=== PATIENT | female | born 1990 | race Caucasian/White ===

== ENCOUNTER 2016-12-13 08:04 | Emergency (ER) | payer BC, OTHER ==
[2016-12-13 08:11] VITALS: RESP 18
--- NOTE | 2016-12-13 09:21 | ED ---
Abdominal Pain HPI - General Chief Complaint: Abdominal Pain Stated Complaint: Abd.pain Time Seen by Provider: 12/13/16 08:35 Source: patient, RN notes reviewed Mode of arrival: ambulatory Limitations: no limitations - History of Present Illness Initial Comments: Patient is 26-year-old female presents to the emergency room for evaluation of lower abdominal pain. Patient states the pain began about 3 days ago. Patient states she is on control and has the Implanon implant. Patient states that her last menstrual period was about 4 months ago. Patient states about 3 days ago she began vaginal bleeding and clotting. Patient states she's having severe pain and bilateral ovaries. Patient denies back pain. Patient denies nausea or vomiting. Patient denies diarrhea or constipation. Patient states having 5 out of 10 constant pain. Patient states she has intermittent 8 out of 10 sharp pain. Patient denies any fevers or chills. Patient does state she has a history of ovarian cysts. Patient denies any history of STDs. Patient denies pain or burning during urination, trouble urinating or blood in urine. Patient denies any history of kidney stones. Patient denies headache, dizziness , chest pain, shortness of breath. - Related Data Home Medications Medication Instructions Recorded Confirmed Etonogestrel [Nexplanon ( 68 mg SUBDERMAL [id number] 05/30/16 12/13/16 control implant)] Ibuprofen [Motrin] 800 mg PO TID PRN 12/13/16 12/13/16 Allergies Allergy/AdvReac Type Severity Reaction Status Date / Time Influenza Virus Vaccines Allergy Unknown Verified 12/13/16 08:11 Review of Systems ROS Statement: Those systems with pertinent positive or pertinent negative responses have been documented in the HPI. ROS Other: All systems not noted in ROS Statement are negative. Past Medical History Past Medical History: Asthma, GERD/Reflux Additional Past Medical History / Comment(s): Migraines, See Dr Mark Puga&Analy, has nexplanol implant in arm History of Any Multi-Drug Resistant Organisms: None Reported Additional Past Surgical History / Comment(s): Pilonidal cyst removal. LOOP RECORDER Past Anesthesia/Blood Transfusion Reactions: No Reported Reaction Past Psychological History: Anxiety, Depression Smoking Status: Never smoker Past Alcohol Use History: Occasional Past Drug Use History: None Reported - Past Family History Mother Family Medical History: No Reported History General Exam - General Exam Comments Initial Comments: Sitting in exam room in no acute distress. Limitations: no limitations General appearance: alert, in no apparent distress Head exam: Present: atraumatic, normocephalic, normal inspection Eye exam: Present: normal appearance ENT exam: Present: normal exam Neck exam: Present: normal inspection Respiratory exam: Present: normal lung sounds bilaterally. Absent: respiratory distress Cardiovascular Exam: Present: regular rate, normal rhythm, normal heart sounds GI/Abdominal exam: Present: soft, tenderness (Right lower quadrant, left lower quadrant), normal bowel sounds. Absent: distended, guarding, rebound, rigid External exam: Present: normal external exam Speculum exam: Present: vaginal bleeding (It appears patient is currently menstruating) By manual exam: Present: normal by manual exam. Absent: cervical motion tenderness, adnexal tenderness Extremities exam: Present: normal inspection Back exam: Present: normal inspection Neurological exam: Present: alert, oriented X3, CN II-XII intact, normal gait Psychiatric exam: Present: normal affect, normal mood Skin exam: Present: warm, dry, intact, normal color. Absent: rash Course Vital Signs 12/13/16 12/13/16 08:09 10:58 Temperature 97.7 F 98.5 F Pulse Rate 81 74 Respiratory 18 18 Rate Blood Pressure 135/85 125/71 O2 Sat by Pulse 100 100 Oximetry Medical Decision Making - Medical Decision Making Patient is a 26-year-old female presents to the emergency room for evaluation of vaginal bleeding and abdominal pain. Urine beta hCG negative. It appears the patient is currently menstruating. Pelvic exam significant for vaginal bleeding but no severe tenderness. Advised patient take Tylenol or Motrin for pain and to follow-up with her GLACIOLOGIST. Advised patient to return for worsening symptoms. Patient states she understands everything that was discussed with her. Case discussed with Dr. Cruz. - Lab Data Lab Results 12/13/16 12/13/16 Range/Units 09:28 09:28 Urine Color Light Yellow Urine Appearance Clear (Clear) Urine pH 6.0 (5.0-8.0) Ur Specific [place] 1.014 (1.001-1.035) Urine Protein Negative (Negative) Urine Glucose (UA) Negative (Negative) Urine Ketones Negative (Negative) Urine Blood Small H (Negative) Urine Nitrate Negative (Negative) Urine Bilirubin Negative (Negative) Urine Urobilinogen <2.0 (<2.0) mg/dL Ur Leukocyte Esterase Negative (Negative) Urine RBC 1 (0-5) /hpf Urine WBC <1 (0-5) /hpf Ur Squamous Epith Cells <1 (0-4) /hpf Urine Mucus Rare H (None) /hpf Urine HCG, Qual Not Detected (Not Detectd) Disposition Clinical Impression: Menorrhagia Disposition: HOME SELF-CARE Condition: Good Instructions: Menorrhagia (ED), Dysmenorrhea (ED) Additional Instructions: Take Tylenol or Motrin for pain. Please follow-up with GLACIOLOGIST in 24-48 hours. If any new symptom arises, symptoms worsen or fever develops, return to ER as soon as possible. Referrals: Marguerite Francois III, MD [Primary Care Provider] - 1-2 days Time of Disposition: 10:45
[2016-12-13 10:08] LABS: Appearance,Urine Clear (Clear); Bilirubin,Urine Negative (Negative); Glucose,Urine (UA) Negative (Negative); Ketones,Urine Negative (Negative); Leukocyte Esterase,Urine Negative (Negative); Mucus,Urine Rare /hpf; Nitrite,Urine Negative (Negative); Particle Count 2154; Protein,Urine Negative (Negative); RBC,Urine 1 /hpf (0-5); Specific Gravity,Urine 1.014 (1.001-1.035); Squamous Epithelial Cell,Urine <1 /hpf (0-4); UA Billing (MACRO vs. MICRO) MICRO; Urobilinogen,Urine <2.0 mg/dL (<2.0); WBC,Urine <1 /hpf (0-5)
[2016-12-13 10:58] VITALS: BP 125/71; PULSE 74; TEMP 98.5
== END 2016-12-13 10:58 | disposition home or self-care (01) ==
LOC: EC 08:04
DX: N92.0 Excessive and frequent menstruation with regular cycle (principal); Z88.7 Allergy status to serum and vaccine
CPT/HCPCS: 81001; 81025; 99284

== ENCOUNTER → 2016-12-22 | Outpatient (CLI) | payer BC, OTHER ==
--- NOTE | 2016-12-22 13:06 | US ---
EXAMINATION TYPE: US transvaginal DATE OF EXAM: 12/22/2016 10:42 AM COMPARISON: 12/22/2015 CLINICAL HISTORY: 26-year-old female R10.9 ABD Pain. Intermittent pelvic pain x 1 year, 2, pa ra 1, miscarriage 1 Date of LMP: 2 weeks ago TECHNIQUE: Multiple transvaginal sonographic images of the pelvis were obtained. FINDINGS: Uterus: Retroverted measuring 8.4 x 6.7 x 5.9 cm. There is a heterogeneous hypoechoic 3.9 cm round l esion in the fundal myometrium. A couple small cervical nabothian cysts are present. Endometrial Stripe: 0.4 cm Right Ovary: 2.4 x 2.7 x 2.2 cm for a volume of 7.3 mL. There is follicular change with multiple fol licles measuring up to 1 m. Left Ovary: 3.6 x 1.9 x 2.5 cm for a volume of 9.0 mL. There is follicular change with multiple foll icles, largest measuring 2.2 cm with some internal echoes and thickening. No evident adnexal abnormality or cul-de-sac free fluid. IMPRESSION: 1. Retroverted uterus with a 3.9 cm round lesion along the fundal myometrium suggestive of a prominen t focal fibroid. 2. Follicular change in both ovaries. 3. A 2.2 cm cystic lesion in the left ovary has internal echoes and may represent a hemorrhagic cyst. Recommend 6-8 week follow-up to reassess.
== END | disposition home or self-care (01) ==
LOC: RADUSWWP 10:06
PROVIDERS: ATTEND Family Medicine
DX: N83.202 Unspecified ovarian cyst, left side (principal); N85.4 Malposition of uterus
CPT/HCPCS: 76830

== ENCOUNTER → 2017-07-28 | Outpatient (CLI) | payer OTHER ==
[2017-07-28 10:21] LABS: Basophils % (A) 0 %; CH 27.4; CHCM 31.6; Eosinophils # (A) 0.1 k/uL (0-0.7); Eosinophils % (A) 1 %; HCT 40.8 % (34.0-46.0); HDW 2.53; Hypochromasia Slight; Luc # (Auto) 0.14; Luc % (Auto) 2; Lymphocytes # (A) 1.7 k/uL (1.0-4.8); Lymphocytes % (A) 23 %; MCH 27.8 pg (25.0-35.0); Mean Platelet Volume 7.1; Monocytes # (A) 0.4 k/uL (0-1.0); Monocytes % (A) 6 %; Neutrophils # (A) 5.1 k/uL (1.3-7.7); Neutrophils % (A) 68 %; RBC 4.69 m/uL (3.80-5.40); RDW 14.9 % (11.5-15.5); WBC 7.5 k/uL (3.8-10.6); WBC (Perox) 7.87
[2017-07-28 10:56] LABS: ALT 36 U/L (9-52); AST 22 U/L (14-36); Alkaline Phosphatase 88 U/L (38-126); Anion Gap 10 mmol/L; Blood Urea Nitrogen 15 mg/dL (7-17); Calcium 9.5 mg/dL (8.4-10.2); Carbon Dioxide 27 mmol/L (22-30); Chloride 104 mmol/L (98-107); Cholesterol 171 mg/dL (<200); Glucose 86 mg/dL (74-99); HDL Cholesterol 71 mg/dL (40-60); Non-African American GFR(MDRD) >60 (>60 ml/min/1.73 sqM); Sodium 141 mmol/L (137-145); Total Bilirubin 0.6 mg/dL (0.2-1.3); Total Protein 7.7 g/dL (6.3-8.2)
== END | disposition home or self-care (01) ==
LOC: LABWHC1 09:28
PROVIDERS: ATTEND Nurse Practitioner Family
DX: Z13.220 Encounter for screening for lipoid disorders (principal); Z13.29 Encounter for screening for other suspected endocrine disorder; Z13.228 Encounter for screening for other metabolic disorders; Z13.21 Encounter for screening for nutritional disorder; Z13.0 Encounter for screening for diseases of the blood and blood-forming organs and certain disorders involving the immune mechanism
CPT/HCPCS: 36415; 80053; 80061; 82306; 84443; 85025; 86376; 86800

== ENCOUNTER → 2017-08-03 | Outpatient (CLI) | payer OTHER ==
--- NOTE | 2017-08-03 15:03 | US ---
EXAMINATION TYPE: US thyroid st tissue head/neck DATE OF EXAM: 08/03/2017 COMPARISON: NONE CLINICAL HISTORY: E04.9 Goiter,R63.5 Abn wt gain. GLAND SIZE: Right Lobe: 4.9 x 1.6 x 1.6 cm Overall Parenchyma: homogenous Left Lobe: 4.5 x 1.5 x 1.5 cm Overall Parenchyma: homogeneous Isthmus Thickness: 0.4 cm NODULES RIGHT: # of nodules measured on right: 0 LEFT: # of nodules measured on left: 0 ISTHMUS: # of nodules measured in the isthmus: 0 Bilateral neck scanned, no evidence of lymphadenopathy. Thyroid gland is normal in size and homogeneous echotexture without evidence of suspicious solid or c ystic nodules bilaterally. IMPRESSION: Unremarkable study.
--- NOTE | 2017-08-03 15:06 | US ---
EXAMINATION TYPE: US transvaginal DATE OF EXAM: 08/03/2017 COMPARISON: US December 22, 2016 CLINICAL HISTORY: R10.2 Pel/Eusebia Pain. Left pelvic pain > right and pain x 2 years; MP end of June ; uterine fibroid TECHNIQUE: Transvaginal (TV) Date of LMP: approximately 2 weeks ago EXAM MEASUREMENTS: Uterus: 9.8 x 7.5 x 6.9 cm Endometrial Stripe: 0.7 cm, but limitedly seen Right Ovary: 3.4 x 2.3 x 2.2 cm Left Ovary: 3.1 x 1.9 x 1.9 cm 1. Uterus: Retroverted; heterogeneous oval fibroid in mid upper uterus = 4.7 x 5.2 x 4.3cm; couple o f Nabothian cysts in CX with larger = 0.7 x 0.7 x 0.7cm; small amount of fluid in cervical canal 2. Endometrium: minimally seen in REGINA due to location of uterine fibroid obscuring endometrium 3. Right Ovary: multiple follicles with largest = 1.4 x 1.3 x 0.9cm 4. Left Ovary: multiple follicles with largest = 2.2 x 1.7 x 1.3cm Spectral, color and waveform Doppler imaging shows good arterial and venous flow within the ovaries ; . 5. Bilateral Adnexa: wnl 6. Posterior cul-de-sac: wnl Some fluid in the endometrial cervical canal is noted on images 11 and 12. Nabothian cysts and cervix are redemonstrated. There is hypervascular 5.2 cm isoechoic oval-shaped central fibroid redemonstrat ed distorting the endometrium which is suboptimally evaluated. No free fluid is seen in pelvis. Both ovaries are redemonstrated. Multiple peripheral follicles scattered throughout both ovaries are identified. IMPRESSION: There is persistent intramural fibroid with mass effect, and measures up to 5.2 cm in siz e on current study suggesting it has enlarged in the interval since prior ultrasound.
== END ==
LOC: RADUSWWP 13:34
PROVIDERS: ATTEND Family Medicine
DX: E04.9 Nontoxic goiter, unspecified (principal); D25.1 Intramural leiomyoma of uterus
CPT/HCPCS: 76536; 76830

== ENCOUNTER 2017-08-16 17:52 | Emergency (ER) | payer OTHER ==
[2017-08-16] MEDS ORDERED: ACETAMINOPHEN TAB 500 MG TAB PO STA (19:32)
--- NOTE | 2017-08-16 19:32 | ED ---
General Adult HPI - General Chief complaint: Urogenital Stated complaint: pelvic pain Time Seen by Provider: 08/16/17 18:48 Source: patient Mode of arrival: ambulatory Limitations: no limitations - History of Present Illness Initial comments: This is a 27-year-old female who presents to the emergency department with complaint of pelvic pain. She has a history of ovarian cysts and uterine fibroids and sees Dr. Francois. Last ultrasound was performed on 08/03/2017 which demonstrated bilateral ovarian follicles and enlarging intramural uterine fibroid. Patient states yesterday morning she began having constant bilateral lower pelvic pain described as cramping which radiates up her abdomen and to her back. She does not take control. Patient states she was supposed to start her period 2 days ago but has not yet started. She states there is a possibility she could be . She has had the same sexual partner for the past 7 years. She denies vaginal bleeding or discharge. She denies any urinary symptoms including dysuria, frequency, or urgency. - Related Data Home Medications Medication Instructions Recorded Confirmed No Known Home Medications [No 08/16/17 08/16/17 Known Home Medications] Allergies Allergy/AdvReac Type Severity Reaction Status Date / Time Influenza Virus Vaccines Allergy Unknown Verified 08/16/17 19:13 Review of Systems ROS Statement: Those systems with pertinent positive or pertinent negative responses have been documented in the HPI. ROS Other: All systems not noted in ROS Statement are negative. Past Medical History Past Medical History: Asthma, GERD/Reflux Additional Past Medical History / Comment(s): Migraines, See Dr Flores H&P, has nexplanol implant in arm, ovarian cyst History of Any Multi-Drug Resistant Organisms: None Reported Additional Past Surgical History / Comment(s): Pilonidal cyst removal. LOOP RECORDER Past Anesthesia/Blood Transfusion Reactions: No Reported Reaction Past Psychological History: Anxiety, Depression Smoking Status: Never smoker Past Alcohol Use History: Occasional Past Drug Use History: None Reported - Past Family History Mother Family Medical History: No Reported History General Exam - General Exam Comments Initial Comments: General: Awake and alert, well-developed; appears to be in mild pain as she lies on her back with her legs pulled up to her abdomen. HEENT: Head atraumatic, normocephalic. Pupils are equal, round and reactive to light. Extraocular movements intact. Oropharynx moist without erythema or exudate. Neck: Supple. Normal ROM. No JVD. Trachea midline. No adenopathy. Cardiovascular: Regular rate and rhythm. No murmurs, rubs or gallops. Chest symmetrical. Respiratory: Lungs clear to auscultation bilaterally. No wheezes, rales or rhonchi. Normal respiratory efffort with no use of accessory muscles. Abdomen: Soft, non-distended. Moderate bilateral lower abdominal pain. No rigidity, rebound, guarding. Normal bowel sounds in all 4 quadrants. Skin: [place], warm and dry. Neurological: Alert and oriented x3. CN II-XII grossly intact. Speech is fluent and answers are appropriate. No focal neuro deficits. Psychiatric: Normal mood and affect. No overt signs of depression or anxiety noted. Limitations: no limitations Course Vital Signs 08/16/17 18:40 Temperature 100.8 F H Pulse Rate 122 H Respiratory 18 Rate Blood Pressure 163/95 O2 Sat by Pulse 99 Oximetry - Reevaluation(s) Reevaluation #1: Patient continues to appear in moderate pain. She is curled into the position upon re-exam. She states that she lives with chronic lower abdominal pain that she attributes to ovarian cysts. This is the same pain she normally experiences however it is worsened. Patient continues to be tachycardic with a mild fever. Will give a liter bolus of normal saline at this time as well as a dose of Dilaudid and Zofran. 08/16/17 19:55 Medical Decision Making - Medical Decision Making Patient has a history of ovarian cysts and uterine fibroids with her last appointment on 08/03/2017. Abdominal pain is likely due to ovarian causes. Urinalysis was negative. test was negative. Mildly elevated white blood cell 11.9. Likely reactive. The case was discussed in detail with Dr. Betancourt. Patient advised to follow up with PCP as soon as possible. She admits to having an appointment scheduled for next Monday but was advised to call tomorrow morning. Disposition Clinical Impression: Pelvic pain, Polycystic ovaries Disposition: HOME SELF-CARE Condition: Good Instructions: Ovarian Cyst (ED) Additional Instructions: Please follow up with PCP as soon as possiible. Return to ED if symptoms should worsen. Referrals: Marguerite Francois III, MD [Primary Care Provider] - 1-2 days Time of Disposition: 21:59
[2017-08-16 19:34] LABS: Appearance,Urine Cloudy (Clear); Bacteria,Urine Rare /hpf; Bilirubin,Urine Negative (Negative); Glucose,Urine (UA) Negative (Negative); Ketones,Urine 1+ (Negative); Leukocyte Esterase,Urine Negative (Negative); Mucus,Urine Few /hpf; Nitrite,Urine Negative (Negative); PH, Urine 5.5 (5.0-8.0); Particle Count 7481; Protein,Urine Negative (Negative); RBC,Urine 2 /hpf (0-5); Specific Gravity,Urine 1.021 (1.001-1.035); Squamous Epithelial Cell,Urine 9 /hpf (0-4); UA Billing (MACRO vs. MICRO) MICRO; Urobilinogen,Urine <2.0 mg/dL (<2.0); WBC,Urine 4 /hpf (0-5)
[2017-08-16] MEDS ORDERED: HYDROmorphone 1 MG/ML 1 ML SYRINGE IVP STA ×2 (19:53→21:37)
[2017-08-16] MEDS ORDERED: ONDANSETRON 4 MG/2 ML VIAL IVP STA (19:54)
[2017-08-16] MEDS ORDERED: SODIUM CHLORIDE 0.9% 1,000 ML IV STA (19:54)
[2017-08-16 20:17] LABS: Basophils % (A) 0 %; CH 27.8; CHCM 31.6; Eosinophils # (A) 0.1 k/uL (0-0.7); Eosinophils % (A) 1 %; HCT 40.3 % (34.0-46.0); HDW 2.37; HGB 13.1 gm/dL (11.4-16.0); Luc # (Auto) 0.16; Luc % (Auto) 1; Lymphocytes # (A) 1.6 k/uL (1.0-4.8); Lymphocytes % (A) 13 %; MCH 28.6 pg (25.0-35.0); MCHC 32.4 g/dL (31.0-37.0); MCV 88.3 fL (80.0-100.0); Monocytes # (A) 0.8 k/uL (0-1.0); Monocytes % (A) 6 %; Neutrophils # (A) 9.3 k/uL (1.3-7.7); Neutrophils % (A) 78 %; RBC 4.57 m/uL (3.80-5.40); RDW 15.2 % (11.5-15.5); WBC 11.9 k/uL (3.8-10.6); WBC (Perox) 12.25
[2017-08-16 20:28] LABS: ALT 27 U/L (9-52); AST 21 U/L (14-36); Alkaline Phosphatase 90 U/L (38-126); Anion Gap 11 mmol/L; Blood Urea Nitrogen 12 mg/dL (7-17); Calcium 9.5 mg/dL (8.4-10.2); Carbon Dioxide 22 mmol/L (22-30); Chloride 106 mmol/L (98-107); Glucose 88 mg/dL (74-99); Non-African American GFR(MDRD) >60 (>60 ml/min/1.73 sqM); Potassium 4.1 mmol/L (3.5-5.1); Sodium 139 mmol/L (137-145); Total Bilirubin 0.5 mg/dL (0.2-1.3); Total Protein 7.8 g/dL (6.3-8.2)
[2017-08-16 21:24] VITALS: RESP 18; TEMP 99.2
[2017-08-16 22:12] VITALS: BP 115/61; PULSE 92
[2017-08-16] MEDS ORDERED: KETOROLAC 60 MG/2 ML VIAL IM STA (22:27)
== END 2017-08-16 22:36 | disposition home or self-care (01) ==
LOC: EC 17:52
DX: E28.2 Polycystic ovarian syndrome (principal); Z85.42 Personal history of malignant neoplasm of other parts of uterus; Z88.7 Allergy status to serum and vaccine
CPT/HCPCS: 36415; 80053; 85025; 81001; 81025; 99284; 96374; 96375; 96376; 96361; 96372; J2405; J1885; J1170

== ENCOUNTER 2018-05-29 08:00 | Day surgery (SDC) | payer OTHER ==
[2018-05-25 08:35] VITALS: BMI 26.4
[~2018-05-29 08:00] MED LIST: SODIUM CHLORIDE 0.9% 1,000 ML IV SCH
[2018-05-29 08:42] VITALS: PULSE 75; TEMP 98.7
[2018-05-29] MEDS ORDERED: SODIUM CHLORIDE 0.9% 450 ML IV ONE (09:00)
[2018-05-29 10:40] VITALS: BP 114/72; RESP 18
[2018-05-29 10:42] LABS: Basophils % (A) 0 %; Eosinophils # (A) 0.1 k/uL (0-0.7); Eosinophils % (A) 2 %; HCT 40.7 % (34.0-46.0); HGB 13.4 gm/dL (11.4-16.0); Lymphocytes # (A) 1.8 k/uL (1.0-4.8); Lymphocytes % (A) 25 %; MCH 29.9 pg (25.0-35.0); MCHC 32.9 g/dL (31.0-37.0); MCV 90.9 fL (80.0-100.0); Mean Platelet Volume 6.8; Monocytes # (A) 0.4 k/uL (0-1.0); Monocytes % (A) 6 %; Neutrophils # (A) 4.6 k/uL (1.3-7.7); Neutrophils % (A) 65 %; Platelet Count 273 k/uL (150-450); RBC 4.48 m/uL (3.80-5.40); WBC 7.1 k/uL (3.8-10.6)
[2018-05-29 10:51] LABS: ALT 33 U/L (9-52); AST 35 U/L (14-36); Albumin 4.1 g/dL (3.5-5.0); Alkaline Phosphatase 62 U/L (38-126); Anion Gap 9 mmol/L; Blood Urea Nitrogen 13 mg/dL (7-17); Carbon Dioxide 27 mmol/L (22-30); Chloride 104 mmol/L (98-107); Glucose 100 mg/dL (74-99); Sodium 140 mmol/L (137-145); Total Bilirubin 0.7 mg/dL (0.2-1.3)
--- NOTE | 2018-05-29 11:07 | P.PCN ---
Preoperative Diagnosis: Procedure planned Tilt table testing Indication for the procedure recurrent presyncope Twelve-lead ECG shows sinus rhythm normal SD narrow QRS normal ST segments Tilt table test procedure Baseline blood pressure 160/67 mmHg Baseline heart rate 68 beats a minute patient was tilted upright at an angle of 70 per protocol there was no change in heart rate and blood pressure she was laid supine at the end of the procedure no symptoms noted Impression Normal heart rate and blood pressure response to upright tilting Plan Continue follow-up of patient's rhythm via loop monitor
== END 2018-05-29 10:41 | disposition home or self-care (01) ==
LOC: CATHEP 08:00
PROVIDERS: ATTEND Internal Medicine Clinical Cardiac Electrophysiology
DX: R55 Syncope and collapse (principal); I47.1 Supraventricular tachycardia; K21.9 Gastro-esophageal reflux disease without esophagitis; Z82.49 Family history of ischemic heart disease and other diseases of the circulatory system; Z88.7 Allergy status to serum and vaccine
CPT/HCPCS: 80053; 81025; 84443; 85025; 93660

== ENCOUNTER 2019-03-15 08:51 | Emergency (ER) | payer OTHER ==
--- NOTE | 2019-03-15 09:06 | ED ---
General Adult HPI <Cruz Osborne - Last Filed: 03/15/19 10:41> - General Source: patient, RN notes reviewed Mode of arrival: ambulatory Limitations: no limitations <Edd Lainez - Last Filed: 03/15/19 10:54> - General Chief complaint: Vaginal Bleeding Stated complaint: 19 wks preg/vaginal bleeding Time Seen by Provider: 03/15/19 08:56 - History of Present Illness Initial comments: 29-year-old female presents emergency Department with chief complaint of vaginal bleeding and . Patient is she is 19 weeks she [address] Jeffries. Patient states that she woke up with bright red moderate bleeding. She states bleeding is subsiding at this time. She denies any abdominal pain, cramping, dysuria, hematuria. She's had no difficulty with this . Patient denies any nausea vomiting diarrhea constipation no back pain no chest pain or shortness breath. Patient's had no problems leg swelling. (Edd Lainez) - Related Data Home Medications Medication Instructions Recorded Confirmed No Known Home Medications 08/16/17 05/25/18 Allergies Allergy/AdvReac Type Severity Reaction Status Date / Time Influenza Virus Vaccines Allergy HIVES, N/V Verified 03/15/19 08:56 Review of Systems ROS Other: All systems not noted in ROS Statement are negative. <Cruz Osborne - Last Filed: 03/15/19 10:41> ROS Other: All systems not noted in ROS Statement are negative. <Edd Lainez - Last Filed: 03/15/19 10:54> ROS Statement: Those systems with pertinent positive or pertinent negative responses have been documented in the HPI. Past Medical History Past Medical History: Asthma, GERD/Reflux Additional Past Medical History / Comment(s): Migraines, See Dr Mark Puga&Analy, has nexplanol implant in arm, ovarian cyst, EP STUDY History of Any Multi-Drug Resistant Organisms: None Reported Additional Past Surgical History / Comment(s): Pilonidal cyst removal. LOOP RECORDER Past Anesthesia/Blood Transfusion Reactions: No Reported Reaction Past Psychological History: Anxiety, Depression Smoking Status: Never smoker Past Alcohol Use History: None Reported Past Drug Use History: None Reported - Past Family History Mother Family Medical History: No Reported History <Edd Lainez - Last Filed: 03/15/19 10:54> General Exam Limitations: no limitations General appearance: alert, in no apparent distress Head exam: Present: atraumatic, normocephalic, normal inspection Eye exam: Present: normal appearance, PERRL, EOMI. Absent: scleral icterus, conjunctival injection, periorbital swelling Neck exam: Present: normal inspection. Absent: tenderness, meningismus, lymphadenopathy Respiratory exam: Present: normal lung sounds bilaterally. Absent: respiratory distress, wheezes, rales, rhonchi, stridor Cardiovascular Exam: Present: regular rate, normal rhythm, normal heart sounds. Absent: systolic murmur, diastolic murmur, rubs, gallop, clicks GI/Abdominal exam: Present: soft, normal bowel sounds. Absent: distended, te nderness, guarding, rebound, rigid Neurological exam: Present: alert, oriented X3, CN II-XII intact Skin exam: Present: warm, dry, intact, normal color. Absent: rash <Edd Lainez - Last Filed: 03/15/19 10:54> Course Vital Signs 03/15/19 08:54 Temperature 98 F Pulse Rate 98 Respiratory 20 Rate Blood Pressure 126/67 O2 Sat by Pulse 99 Oximetry Medical Decision Making <Cruz Osborne - Last Filed: 03/15/19 10:41> - Medical Decision Making Patient reevaluated by myself, Dr. Osborne. Patient states she did have some bleeding similar to a and sees earlier this morning and now is having minimal spotting. Abdomen/pelvis is nontender. Patient does have of extension consistent with gravid state. Ultrasound report reviewed. Case was discussed with Dr. Junior who states patient can follow-up immediately the week with Dr. Jeffries, otherwise nothing further to do at this point. Patient is blood type O+ from previous pregnancies. (Cruz Osborne) Disposition <Cruz Osborne - Last Filed: 03/15/19 10:41> Is patient prescribed a controlled substance at d/c from ED?: No Time of Disposition: 10:54 <Edd Lainez - Last Filed: 03/15/19 10:54> Clinical Impression: Placenta previa, Vaginal bleeding during Disposition: HOME SELF-CARE Condition: Stable Instructions (If sedation given, give patient instructions): Placenta Previa (ED) Additional Instructions: Pelvic rest, follow-up with [facility] [employer]. Please return to the Emergency Department if symptoms worsen or any other concerns. Referrals: None,Stated [Primary Care Provider] - 1-2 days
--- NOTE | 2019-03-15 09:50 | US ---
EXAMINATION TYPE: US OB >= 14 wk fetus DATE OF EXAM: 03/15/2019 COMPARISON: None CLINICAL HISTORY: Pain Bleeding. Patient states bleeding x1 day. "Just had ultrasound done at Dr. Cooper aviles's office Monday and everything was fine" TECHNIQUE: Transabdominal (TA) GESTATIONAL AGE / DATING Physician Established: (19 weeks/2 days) EDC: 08/07/2019 Dates by LMP: (19 weeks/2 days) EDC: 08/07/2019 Dates by First Scan: No previous this is first scan at our facility Dates by Current Scan: (19 weeks/5 days) EDC: 08/04/2019 Beta HCG (if available): Not available at this time SURVEY IUP: Single PLACENTA: Anterior PREVIA: Complete CONCETTA: 13.6 cm Normal CERVICAL LENGTH (transabdominal: norm > 3.0cm): 3.4 cm BIOMETRY PRESENTATION: Breech LIE: Transverse with head maternal Left BPD: 4.4 cm 19 weeks / 3 days HC: 17.0 cm 19 weeks / 4 days AC: 15.5 cm 20 weeks / 5 days FL: 3.3 cm 20 weeks / 2 days ESTIMATED WEIGHT IN GRAMS: 348 grams ESTIMATED WEIGHT IN LBS/OZ: 0 lbs. 12 oz. WEIGHT PERCENTAGE BASED ON ESTABLISHED DATES: 95.1% HC/AC: 1.1 Normal FL/AC: 21.2 Normal HEART RATE: 144 bpm RHYTHM: Normal Viable IUP, measurements consistent with dates. Complete placenta previa IMPRESSION: Complete placenta previa, follow-up recommended. Single viable intrauterine corresponding t o ultrasound age 19 weeks 5 days with estimated date of delivery 08/04/2019. Limited survey.
[2019-03-15 10:53] VITALS: BP 126/63; PULSE 75; RESP 18; TEMP 98.7
== END 2019-03-15 10:59 | disposition home or self-care (01) ==
LOC: EC 08:51
DX: O44.12 Complete placenta previa with hemorrhage, second trimester (principal); Z67.40 Type O blood, Rh positive; Z88.7 Allergy status to serum and vaccine; Z3A.19 19 weeks gestation of pregnancy
CPT/HCPCS: 76805; 99284

== ENCOUNTER 2019-06-09 20:58 | Outpatient (CLI) | payer OTHER ==
[2019-06-09 21:32] VITALS: BP 133/86; PULSE 96; RESP 16; TEMP 97.3
[2019-06-09 21:37] LABS: Appearance,Urine Cloudy (Clear); Bilirubin,Urine Negative (Negative); Blood,Urine Large (Negative); Color,Urine Light Yellow; Glucose,Urine (UA) Negative (Negative); Ketones,Urine Negative (Negative); Leukocyte Esterase,Urine Large (Negative); Nitrite,Urine Negative (Negative); PH, Urine 7.5 (5.0-8.0); Protein,Urine Negative (Negative); RBC,Urine 6 /hpf (0-5); Specific Gravity,Urine 1.006 (1.001-1.035); Squamous Epithelial Cell,Urine 1 /hpf (0-4); Urobilinogen,Urine <2.0 mg/dL (<2.0); WBC,Urine 27 /hpf (0-5)
--- NOTE | 2019-06-09 22:06 | US ---
EXAMINATION TYPE: US OB >= 14 wk fetus DATE OF EXAM: 06/09/2019 COMPARISON: None CLINICAL HISTORY: vag bleeding Vaginal bleeding today TECHNIQUE: Transabdominal (TA) GESTATIONAL AGE / DATING Physician Established: (33 weeks/0 days) EDC: 07/28/19 Dates by LMP: LMP unknown Dates by First Scan: (32 weeks/0 days) EDC: 08/04/19 Dates by Current Scan: (33 weeks/1 days) EDC: 07/27/19 SURVEY IUP: Single PLACENTA: Anterior PREVIA: Low Lying CONCETTA: 13.3 cm Normal CERVICAL LENGTH (transabdominal: norm > 3.0cm): 3.2 cm BIOMETRY PRESENTATION: Vertex LIE: Longitudinal BPD: 7.9 cm 31 weeks / 6 days HC: 29.3 cm 32 weeks / 3 days AC: 30.2 cm 34 weeks / 2 days FL: 6.6 cm 34 weeks / 0 days ESTIMATED WEIGHT IN GRAMS: 2245 grams ESTIMATED WEIGHT IN LBS/OZ: 4 lbs. 15 oz. WEIGHT PERCENTAGE BASED ON ESTABLISHED DATES: 62% HC/AC: 0.97 Normal FL/AC: 22% Normal HEART RATE: 132 bpm RHYTHM: Normal IMPRESSION: Amniotic fluid is adequate. No complicating process seen. There is satisfactory growth compared to exam.
--- NOTE | 2019-06-22 11:11 | P.MSEPDOC ---
Presenting Problems - Arrival Data Date of Arrival on Unit: 06/09/19 Time of Arrival on Unit: 20:58 Mode of Transport: Portable - Complaint OB-Reason for Admission/Chief Complaint: Vaginal Bleeding Comment: Patient started bleeding around 0630 this am, states it is bright red in color, similar to a period. Patient states she has only had to change her pad twice today. Denies having intercourse today, denies leaking of amniotic fluid. States that she had a issue like this around 19 weeks and was told she had a low lying placenta then, but then couple weeks ago she had a repeat ultrasound done and was told that issue was resolved. Medical History - Information : 3 Para: 1 Term: 1 : 0 Abortions: Spontaneous or Elective: 1 Number of Living Children: 1 - Gestational Age Gestational Age by TIMOTHY (wks/days): 33 Weeks and 0 Days Review of Systems - Review of Systems Constitutional: No problems Breast: No problems ENT: No problems Cardiovascular: No problems Respiratory: No problems Gastrointestinal: No problems Genitourinary: No problems Musculoskeletal: No problems Neurological: No problems Skin: No problems Vital Signs - Temperature Temperature: 97.3 F Temperature Source: Temporal Artery Scan - Pulse Pulse Oximetery Pulse Rate: 96 Pulse Assessment Method: Automatic Cuff - Respirations Respiratory Rate: 16 Oxygen Delivery Method: Room Air - Blood Pressure Sitting Blood Pressure: 133/86 Blood Pressure Mean: 101 Blood Pressure Source: Automatic Cuff Medical Screen Scoring (Pre) - Cervical Exam Dilation: Exam Deferred Effacement: Exam Deferred Membranes: Intact - Uterine Contractions Frequency: N/A Duration: N/A Intensity: N/A - Maternal Vital Signs Maternal Temperature: N/A Maternal Blood Pressure: N/A Signs of Preeclampsia: N/A Maternal Respirations: N/A - Maternal Trauma Maternal Trauma: N/A - Assessment - Baby A Baseline FHR: 135 Heart Rate - NICHD Category: Category I (Normal) = 0 NST: Reactive Position: N/A Station: N/A - Total Score - Baby A Total Score - Baby A: 0 - Total Score - Baby B Total Score - Baby B: 0 - Total Score - Baby C Total Score - Baby C: 0 - Level of Risk - Baby A Level of Risk - Baby A: Low (0-5) - Level of Risk - Baby B Level of Risk - Baby B: Low (0-5) - Level of Risk - Baby C Level of Risk - Baby C: Low (0-5) Physician Notification (Pre) - Physician Notified Physician Notified Date: 06/09/19 Physician Notified Time: 21:12 Physician/Practitioner Notifed:: Dr. Rausch New Order Received: Yes - Notification Comment Comment: Collect and send UA and order a complete OB ultrasound. at 2154 Physician states to discharge patient home with instructions and patient to keep regular scheduled appointment with Dr. Jeffries for Monday. Patient is to be on pelvic rest until her appointment, no intercourse, nothing in the vagina until further notice. Disposition - Disposition OB Disposition: Discharge to home, Written follow up instructions reviewed Discharge Date: 06/09/19 Discharge Time: 22:19 I agree with the RN Medical Screening Exam: Yes Risk & Benefit of care provided described in d/c instruction: Yes Diagnosis: SPOTTING COMPLICATING , THIRD TRIMESTER
== END 2019-06-09 22:19 | disposition home or self-care (01) ==
LOC: FBPOP 20:58
PROVIDERS: ATTEND Obstetrics & Gynecology
DX: O26.853 Spotting complicating pregnancy, third trimester (principal); Z3A.33 33 weeks gestation of pregnancy
CPT/HCPCS: 59025; 81001; 76805; G0463; 99215

== ENCOUNTER 2019-06-21 09:15 | Outpatient (CLI) | payer OTHER ==
[2019-06-21 09:39] LABS: Basophils % (A) 0 %; Eosinophils # (A) 0.1 k/uL (0-0.7); Eosinophils % (A) 1 %; HCT 37.1 % (34.0-46.0); HGB 12.2 gm/dL (11.4-16.0); Lymphocytes # (A) 1.4 k/uL (1.0-4.8); Lymphocytes % (A) 16 %; MCH 30.5 pg (25.0-35.0); MCHC 32.9 g/dL (31.0-37.0); MCV 92.9 fL (80.0-100.0); Monocytes # (A) 0.7 k/uL (0-1.0); Monocytes % (A) 7 %; Neutrophils # (A) 6.6 k/uL (1.3-7.7); Neutrophils % (A) 73 %; Platelet Count 239 k/uL (150-450)
[2019-06-21] MEDS ORDERED: BETAMET ACET-BETAMETH SOD PHOS 6 MG/ML VIAL IM SCH (10:45)
--- NOTE | 2019-06-21 10:54 | US ---
EXAMINATION TYPE: US OB >= 14 wk fetus DATE OF EXAM: 06/21/2019 COMPARISON: None CLINICAL HISTORY: bleeding; TECHNIQUE: Transabdominal (TA) GESTATIONAL AGE / DATING Physician Established: (33 weeks/2 days) EDC: 08/07/19 Dates by LMP: unknown Dates by First Scan: (33 weeks/5 days) EDC: 08/04/19 Dates by Current Scan: (32 weeks/0 days) EDC: 08/16/19 Beta HCG (if available): NA SURVEY IUP: Single PLACENTA: Anterior PREVIA: No Previa CONCETTA: 14.0 cm Normal CERVICAL LENGTH (transabdominal: norm > 3.0cm): 4.6 cm at exam's start with fluid (hypoechoic area) w ithin the cervical canal = 4.3 x 3.0 x 2.2cm and thinner fluid area remeasured at exam's end = 4.5 x 1.3 x 0.8cm is noted within cervical canal. BIOMETRY PRESENTATION: Vertex LIE: Longitudinal, spine noted maternal left BPD: 7.5 cm 30 weeks / 1 day HC: 28.5 cm 31 weeks / 2 days AC: 29.7 cm 33 weeks / 5 days FL: 6.5 cm 33 weeks / 3 days ESTIMATED WEIGHT IN GRAMS: 2102.0 grams ESTIMATED WEIGHT IN LBS/OZ: 4 lbs. 10 oz. WEIGHT PERCENTAGE BASED ON ESTABLISHED DATES: 33.3% HC/AC: 0.96 Normal FL/AC: 21.75 Normal HEART RATE: 143 bpm RHYTHM: Normal Tech findings verbalized to Dr Mackay at exam's end. JJ Single, live IUP, 32 weeks/0 days, EDC: 08/16/19, HR 143bpm; fluid level noted within the cervical ca nal at exam's beginning and noted at exam's end. IMPRESSION: Single live intrauterine with a calculated sonographic age of 32 weeks and 0 days and estim ated date of delivery of 08/16/2019. Cervical canal is difficult to visualize however does not appear shortened. A scant amount of fluid is seen within the endocervical canal.
--- NOTE | 2019-06-21 10:55 | P.HPOB ---
History of Present Illness H&P Date: 06/21/19 Chief Complaint: 33-2/7 weeks, vaginal bleeding with contractions The patient is a 29-year-old 3 para 1011 who presented to the triage area today with acute vaginal bleeding this morning. Her has been essentially uncomplicated though she did have placenta previa at early ultrasound which was resolved at 28 weeks. She denies any trauma to cause of bleeding this morning. She is recognizing some contractions and cramping but is not particularly uncomfortable. Bleeding has slowed to some extent since her presentation here and all signs reassuring from a perspective. Bedside ultrasound confirms normal amniotic fluid index with vertex presentation. There is no evidence of retroplacental clot though there is some apparent fluid within the cervical canal, likely blood. Group B strep status has not been determined yet. Betamethasone has already been given. Obstetrical history: 3 para 1011 with 1 term vaginal delivery without complications. She did have one early miscarriage not requiring D&C. Current statistics are listed in history present illness. EDC of 08/07/2019 was established by last menstrual period and confirmed by second trimester ultrasound. Laboratory workup demonstrates a blood type of O+ with a negative antibody screen. Rubella status is immune. The remainder of her laboratory workup was within normal limits. One hour Glucola was normal and group B strep status has not yet been done. Gynecologic history: Unremarkable with no history of any infections to include STDs. Review of Systems Review of systems is confined to history of present illness. Past Medical History Past Medical History: Asthma, GERD/Reflux Additional Past Medical History / Comment(s): Migraines, See Dr Flores H&P, has nexplanol implant in arm, ovarian cyst, EP STUDY History of Any Multi-Drug Resistant Organisms: None Reported Additional Past Surgical History / Comment(s): Pilonidal cyst removal. LOOP RECORDER Past Anesthesia/Blood Transfusion Reactions: No Reported Reaction Smoking Status: Never smoker - Past Family History Mother Family Medical History: No Reported History Medications and Allergies Home Medications Medication Instructions Recorded Confirmed Type No Known Home Medications 08/16/17 06/09/19 History Allergies Allergy/AdvReac Type Severity Reaction Status Date / Time Influenza Virus Vaccines Allergy Anaphylaxis Verified 06/21/19 09:23 Exam Intake and Output 06/20/19 06/21/19 06/21/19 22:59 06:59 14:59 Other: Weight 77.111 kg In general, the patient is a well-developed well-nourished white female in no acute distress. Her heart has a regular rhythm and rate without murmur. Her lungs are clear to auscultation bilaterally in all potts. Her abdomen is gravid, nondistended, has normal active bowel sounds, is soft, nontender, and without any palpable masses aside from the uterine fundus. Her extremities are without any cyanosis, clubbing, or edema and are nontender to palpation bilaterally. Digital cervical examination demonstrates cervix to 1 cm dilated, thick, with the vertex in presentation but very high in the pelvis. Results Result Diagrams: 06/21/19 09:30 Assessment and Plan (1) Vaginal bleeding in Current Visit: Yes Status: Acute Code(s): O46.90 - ANTEPARTUM HEMORRHAGE, UNSPECIFIED, UNSPECIFIED TRIMESTER SNOMED Code(s): 75600091880644699 (2) 33 weeks gestation of Current Visit: Yes Status: Acute Code(s): Z3A.33 - 33 WEEKS GESTATION OF SNOMED Code(s): 13888347 (3) uterine contractions Current Visit: Yes Status: Acute Code(s): O47.9 - FALSE LABOR, UNSPECIFIED SNOMED Code(s): 925930449 Plan: Given the patient's current stability and relatively minimal bleeding though it is still ongoing as well as her ongoing contractions, we will arrange for transfer of the patient to [facility] in [place] as a tertiary care institution secondary to her gestational age at less than 35 weeks. She is entirely stable at this time. She has had betamethasone started though no antibiotics have been started at this time. Bedside ultrasound has confirmed essentially normal findings. The case was discussed with Dr. Santiago at [facility], who has accepted the transfer. She will be taken by ambulance with IV fluids running.
[2019-06-21] MEDS ORDERED: LACTATED RINGERS 1,000 ML IV SCH (11:00)
== END 2019-06-21 11:20 ==
LOC: FBPOP 09:15
PROVIDERS: ATTEND Obstetrics & Gynecology
DX: O46.90 Antepartum hemorrhage, unspecified, unspecified trimester (principal); O47.03 False labor before 37 completed weeks of gestation, third trimester; Z3A.33 33 weeks gestation of pregnancy
CPT/HCPCS: 59025; 96360; 96361; 96372; 85025; 76805; G0463; J0702; 99215

== ENCOUNTER 2019-07-21 21:00 | Observation (INO) | payer OTHER ==
[2019-07-21 21:36] VITALS: PULSE 88; RESP 16; TEMP 97.2
[2019-07-21 21:49] LABS: Basophils % (A) 0 %; Eosinophils # (A) 0.1 k/uL (0-0.7); Eosinophils % (A) 1 %; HGB 12.7 gm/dL (11.4-16.0); Lymphocytes # (A) 2.3 k/uL (1.0-4.8); Lymphocytes % (A) 22 %; MCH 30.5 pg (25.0-35.0); MCHC 33.3 g/dL (31.0-37.0); MCV 91.6 fL (80.0-100.0); Mean Platelet Volume 8.1; Monocytes # (A) 0.7 k/uL (0-1.0); Monocytes % (A) 7 %; Neutrophils # (A) 6.8 k/uL (1.3-7.7); Neutrophils % (A) 67 %; Platelet Count 260 k/uL (150-450); RBC 4.15 m/uL (3.80-5.40); RDW 15.6 % (11.5-15.5); WBC 10.1 k/uL (3.8-10.6)
[2019-07-21 21:58] LABS: ALT 16 U/L (9-52); AST 18 U/L (14-36); African American GFR (CKD) >90 (>60 ml/min/1.73 sqM); Blood Urea Nitrogen 13 mg/dL (7-17); LDH 348 U/L (313-618)
[2019-07-21 22:20] LABS: Appearance,Urine Clear (Clear); Bilirubin,Urine Negative (Negative); Blood,Urine Moderate (Negative); Color,Urine Light Yellow; Glucose,Urine (UA) Negative (Negative); Ketones,Urine Negative (Negative); Leukocyte Esterase,Urine Trace (Negative); Mucus,Urine Rare /hpf; Nitrite,Urine Negative (Negative); PH, Urine 6.5 (5.0-8.0); Protein,Urine Negative (Negative); RBC,Urine <1 /hpf (0-5); Specific Gravity,Urine 1.006 (1.001-1.035); Squamous Epithelial Cell,Urine 1 /hpf (0-4); Urobilinogen,Urine <2.0 mg/dL (<2.0); WBC,Urine 1 /hpf (0-5)
--- NOTE | 2019-07-21 23:08 | US ---
EXAM: US Uterus, Limited CLINICAL HISTORY: ITS.REASON US Reason: vag bleeding TECHNIQUE: Real-time ultrasound of the maternal uterus (limited) with image documentation. COMPARISON: 06/21/2019 ultrasound FINDINGS: Single live intrauterine is identified. BPD, head circumference, abdominal circumference, femur length (8.8 cm, 32 cm, 34 cm, 7 cm respectively. Corresponds to a gestational age of 36 weeks and 4 days. Estimated weight is 3193 g. CONCETTA is 16 cm. Heart rate is 132 bpm. Cervix is 3.1 cm. No placental previa. IMPRESSION: Normal ultrasound.
[2019-07-21] MEDS ORDERED: LACTATED RINGERS 1,000 ML IV SCH (23:30)
[2019-07-22] MEDS ORDERED: LACTATED RINGERS 1,000 ML IV ONE
[2019-07-22] MEDS ORDERED: ACETAMINOPHEN IV (For NPO) 1,000 MG in EMPTY BAG 1 BAG IVPB SCH
[2019-07-22 00:17] VITALS: BP 112/72
--- NOTE | 2019-07-25 13:39 | P.MSEPDOC ---
Presenting Problems - Arrival Data Date of Arrival on Unit: 07/21/19 Time of Arrival on Unit: 21:00 Mode of Transport: Portable - Complaint OB-Reason for Admission/Chief Complaint: Vaginal Bleeding Comment: large gush of blood and spotting since Medical History - Information : 3 Para: 1 Term: 1 : 0 Abortions: Spontaneous or Elective: 1 Number of Living Children: 1 - Gestational Age Gestational Age by TIMOTHY (wks/days): 37 Weeks and 4 Days Review of Systems - Review of Systems Constitutional: No problems Breast: No problems ENT: No problems Cardiovascular: No problems Respiratory: No problems Gastrointestinal: No problems Genitourinary: No problems Musculoskeletal: No problems Neurological: No problems Skin: No problems Vital Signs - Temperature Temperature: 97.2 F - Pulse Right Pulse Rate: 88 Pulse Assessment Method: Pulse Oximetry - Respirations Respiratory Rate: 16 O2 Sat by Pulse Oximetry: 99 - Blood Pressure Right Arm Blood Pressure: 112/72 Blood Pressure Mean: 85 Blood Pressure Source: Automatic Cuff Medical Screen Scoring (Pre) - Cervical Exam Dilation: 1-3 cm = 1 Membranes: Intact - Uterine Contractions Frequency: > 5 minutes apart = 1 Duration: > 40 seconds = 2 Intensity: N/A - Maternal Vital Signs Maternal Temperature: N/A Maternal Blood Pressure: Systolic >139 = 2 Signs of Preeclampsia: N/A Maternal Respirations: N/A - Maternal Trauma Maternal Trauma: N/A - Assessment - Baby A Baseline FHR: 130 Heart Rate - NICHD Category: Category I (Normal) = 0 NST: Reactive Position: N/A Station: N/A - Total Score - Baby A Total Score - Baby A: 6 - Total Score - Baby B Total Score - Baby B: 6 - Total Score - Baby C Total Score - Baby C: 6 - Level of Risk - Baby A Level of Risk - Baby A: Medium (6-9) - Level of Risk - Baby B Level of Risk - Baby B: Medium (6-9) - Level of Risk - Baby C Level of Risk - Baby C: Medium (6-9) Physician Notification (Pre) - Physician Notified Physician Notified Date: 07/21/19 Physician Notified Time: 21:27 Physician/Practitioner Notifed:: Dr Mackay - Notification Comment Comment: Dr Mackay called at home. Reported on pts c/o large gush of bleeding that filled. a pad, and some spotting since. Reported on pts c/o of bleeding episodes throughout the. . Pt reports that she had a previa that was resolved, and Dr Jeffries checked her. last week. Reported on external exam, SSE and SVE with no cervical change since last. week. Reported on plan for . Orders for u/s for EFW, CONCETTA, placenta, and CBC, npo. Order PIH panel for increased BPs while here. Call with results Medical Screen Scoring (Post) - Cervical Exam Dilation: 1-3 cm = 1 - Uterine Contractions Frequency: > or = 36 weeks =2 Duration: > 40 seconds = 2 Intensity: N/A - Maternal Vital Signs Maternal Temperature: N/A Maternal Blood Pressure: N/A Signs of Preeclampsia: N/A Maternal Respirations: N/A - Maternal Trauma Maternal Trauma: N/A - Assessment - Baby A Heart Rate: 135 Heart Rate - NICHD Category: Category I (Normal) = 0 NST: Reactive Position: N/A - Total Score Total Score - Baby A: 5 Total Score - Baby B: 5 Total Score - Baby C: 5 - Post Treatment Level of Risk Post Treatment Level of Risk - Baby A: Low (0-5) Physician Notification (Post) - Physician Notified Physician Notified Date: 07/21/19 Physician Notified Time: 23:35 - Notification Comment Comment: reported on lab results, u/s reports, reactive fhts, unchanged SVE, bleeding is less than on admission, pt feeling more comfortable. Dr Mackay would like to admit pt as OBV over night, start IV, keep on monitor, and continue to monitor bleeding. pt does not want to stay overnight, would like to be d/c'd home since bleeding is "better." Dr Mackay aware, ok with this plan. pt was encouraged to stay, as was Dr Shepard recommendation. pt aware, does not want to stay, will be d/c' home. keep scheduled appt in office on monday Disposition - Disposition OB Disposition: Discharge to home Discharge Date: 07/21/19 Discharge Time: 23:40 I agree with the RN Medical Screening Exam: Yes Risk & Benefit of care provided described in d/c instruction: Yes Diagnosis: FALSE LABOR, UNSPECIFIED
== END 2019-07-21 23:45 | disposition home or self-care (01) ==
LOC: FBPOP 21:00 → 4FBP 23:30
PROVIDERS: ADMIT Obstetrics & Gynecology Obstetrics; ATTEND Obstetrics & Gynecology
DX: O47.1 False labor at or after 37 completed weeks of gestation (principal); O46.93 Antepartum hemorrhage, unspecified, third trimester; Z3A.37 37 weeks gestation of pregnancy
CPT/HCPCS: 59025; 82570; 84156; 82565; 83615; 84450; 84460; 84520; 85025; 81001; 76805; G0378; G0463; 99213

== ENCOUNTER 2019-08-01 05:38 | Inpatient (IN) | payer OTHER ==
[2019-08-01] MEDS ORDERED: METHYLERGONOVINE 0.2 MG/ML 1 ML AMP IM PRN (06:24)
[2019-08-01] MEDS ORDERED: OXYTOCIN 10 UNIT/ML 1 ML VIAL IM PRN (06:24)
[2019-08-01] MEDS ORDERED: CARBOPROST TROMETHAMINE 250 MCG/ML 1 ML AMP IM PRN (06:24)
[2019-08-01] MEDS ORDERED: LIDOCAINE 0.5% (PF) 5 MG/ML (50 ML SDV) SQ PRN (06:24)
[2019-08-01] MEDS ORDERED: TERBUTALINE 1 MG/ML VIAL SQ PRN (06:24)
[2019-08-01 06:34] VITALS: BMI 37.1
[2019-08-01] MEDS: LACTATED RINGERS 1,000 ML IV SCH ×3 (06:36→09:50)
[2019-08-01 06:41] LABS: Basophils # (A) 0.1 k/uL (0-0.2); Basophils % (A) 0 %; Eosinophils # (A) 0.1 k/uL (0-0.7); Eosinophils % (A) 1 %; HCT 40.3 % (34.0-46.0); HGB 13.7 gm/dL (11.4-16.0); Lymphocytes # (A) 1.7 k/uL (1.0-4.8); Lymphocytes % (A) 11 %; MCH 30.7 pg (25.0-35.0); MCHC 33.9 g/dL (31.0-37.0); MCV 90.7 fL (80.0-100.0); Mean Platelet Volume 8.7; Monocytes # (A) 0.6 k/uL (0-1.0); Monocytes % (A) 4 %; Neutrophils # (A) 12.3 k/uL (1.3-7.7); Neutrophils % (A) 83 %; Platelet Count 225 k/uL (150-450); RBC 4.44 m/uL (3.80-5.40); RDW 15.1 % (11.5-15.5); WBC 14.9 k/uL (3.8-10.6)
--- NOTE | 2019-08-01 07:44 | P.HPOB ---
History of Present Illness H&P Date: 08/01/19 Chief Complaint: Strong, regular uterine contractions. This is a 29-year-old white female 1 para 1011 EDC 08/07/2019 at 39 and one sevenths weeks' gestation. Patient presents with strong regular uterine contractions which began at home. She denies fluid leakage. She has had intermittent vaginal bleeding, only scant dark bleeding this morning. Fetus is been active throughout the . Past medical history is pertinent for childhood asthma and migraine headaches. Past surgical history removal of pilonidal cyst 2009. Current medications vitamins daily. ALLERGIES include a flu shot to which she reports hives. Family history significant for hypertension, hypercholesterolemia. Social history patient is single, father of the baby is involved, she has never been a smoker. 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 history blood type O+, rubella status immune. VDRL testing, gonorrhea and chlamydia cultures, HIV testing, group B strep cultures all negative. One- hour Glucola within normal limits. On exam this is a pleasant white female who is 5 foot 0 inches, 190 pounds, admitting blood pressure 135/92, pulse 96, patient is afebrile. The general physical exam is within normal limits. Extremities reveal trace edema. Normal reflexes. Chest is clear in all potts. Cervix is 5 cm dilated, 90% effaced, - 2 station, vertex presentation. Artificial amniorrhexis reveals clear fluid. heart rate is consistent with reactive NST. Impression: 39 and one sevenths weeks intrauterine , active spontaneous labor. All signs currently reassuring. Plan: We will begin oxytocin augmentation and titrated as appropriate. Close maternal and surveillance. Analgesic options reviewed with the patient. Anticipate normal spontaneous vaginal delivery. Review of Systems Constitutional: Reports as per HPI Past Medical History Past Medical History: Asthma, GERD/Reflux Additional Past Medical History / Comment(s): Migraines, See Dr Flores H&P, ovarian cyst, EP STUDY History of Any Multi-Drug Resistant Organisms: None Reported Additional Past Surgical History / Comment(s): Pilonidal cyst removal. LOOP RECORDER Past Anesthesia/Blood Transfusion Reactions: No Reported Reaction Past Psychological History: Anxiety, Depression Smoking Status: Never smoker Past Alcohol Use History: None Reported Past Drug Use History: None Reported - Past Family History Mother Family Medical History: Hypertension Father Family Medical History: Hyperlipidemia Medications and Allergies Home Medications Medication Instructions Recorded Confirmed Type Pnv No.95/Ferrous Fum/Folic AC 1 each PO DAILY 08/01/19 08/01/19 History [ Multivitamin Tablet] Allergies Allergy/AdvReac Type Severity Reaction Status Date / Time Influenza Virus Vaccines Allergy Rash/Hives Verified 08/01/19 05:40 Exam Vital Signs Temp Pulse Resp BP 08/01/19 06:27 97.5 F L 96 16 135/92 08/01/19 05:58 97.5 F L 96 16 133/88 Intake and Output 07/31/19 08/01/19 08/01/19 22:59 06:59 14:59 Other: Weight 86.228 kg See dictation under HPI please Results Result Diagrams: 08/01/19 06:27 Abnormal Lab Results - Last 24 Hours (Table) 08/01/19 Range/Units 06:27 WBC 14.9 H (3.8-10.6) k/uL Neutrophils # 12.3 H (1.3-7.7) k/uL Assessment and Plan Assessment: 39 and one sevenths weeks intrauterine , active spontaneous labor. All signs reassuring. Plan: We will begin oxytocin augmentation and titrated as clinically appropriate. Continue close maternal and surveillance. Anticipate normal spontaneous vaginal delivery. Time with Patient: Less than 30
[2019-08-01] MEDS ORDERED: OXYTOCIN 30 UNITS/500 ML NS 30 UNIT in SALINE 1 500ML.BAG IV SCH (08:00)
[2019-08-01] MEDS ORDERED: ZOLPIDEM 5 MG TAB PO PRN (11:41)
[2019-08-01] MEDS ORDERED: IBUPROFEN 600 MG TAB PO PRN (11:41)
[2019-08-01] MEDS ORDERED: BENZOCAINE/MENTHOL SPRAY 1 GM/SPRAY AEROSOL TOPICAL PRN (11:41)
[2019-08-01] MEDS ORDERED: LANOLIN CREAM 5 GM TUBE TOPICAL PRN (11:41)
[2019-08-01] MEDS ORDERED: WITCH HAZEL 1 EACH MED..PAD TOPICAL PRN (11:41)
[2019-08-01] MEDS ORDERED: SIMETHICONE 80 MG CHEWABLE PO PRN (11:41)
[2019-08-01] MEDS ORDERED: ACETAMINOPHEN TAB 325 MG TAB PO PRN (11:41)
[2019-08-01] MEDS ORDERED: diphenhydrAMINE 25 MG CAP PO PRN (11:41)
[2019-08-01] MEDS ORDERED: diphenhydrAMINE 50 MG/ML 1 ML VIAL IVP PRN ×2 (11:41)
[2019-08-01] MEDS ORDERED: HYDROCORTISONE 2.5% RECTAL CREAM 30 GM TUBE RECTAL PRN (11:41)
[2019-08-01] MEDS ORDERED: diphenhydrAMINE 50 MG CAP PO PRN (11:41)
--- NOTE | 2019-08-01 11:41 | P.PROBDLV ---
Vaginal Delivery Note - . Vaginal Delivery Note: This is a 29-year-old white female 3 para 1011 EDC 08/07/2019 at 39 and one sevenths weeks' gestation. Patient presented in active spontaneous labor. Patient had a history of repeat episodes of bright red vaginal bleeding in the third trimester, source uncertain. Fetus has otherwise been active throughout the . Blood type O positive, rubella status immune, group B strep cultures negative. Please see my dictated history and physical for details. Artificial amniorrhexis revealed fluid that was clear, but bloody tinged. heart tones were reassuring throughout the first and second stages of labor. Fluid became consistently within meconium as labor progressed. Patient requested epidural and this was placed without difficulty. Oxytocin augmentation was given to promote the active first stage of labor. Patient progressed well, became completely dilated at 1110 hours. Perineal body was prepped and draped in usual sterile fashion. With excellent maternal expulsive efforts infant's head delivered occiput anterior and restituted a ccordingly. There was a nuchal cord 1 that was reduced. The right or anterior shoulder was delivered from underneath the pubic symphysis at which time the oropharynx, nasopharynx, and external nares were all bulb suctioned on the perineal body. Patient was officially delivered of a liveborn male infant at 1122 hours. Umbilical cord was doubly clamped and ligated, he was handed to waiting nurses for evaluation where scores of 8 and 9 at one and 5 minutes respectively were given. Placenta delivered spontaneously, upon delivering the placenta several large dark blood clots were encountered, consistent with clinical abruption. For this reason placenta was sent to pathology for further evaluation. Uterus is then massaged. Careful inspection of the cervix, vagina, perineum, periurethral, and perirectal areas revealed a small midline first-degree perineal laceration. This was repaired in the usual fashion using 3-0 Vicryl suture. Infant weight 3535 g or 7 lbs. 13 oz. All sponge needle and enhancement counts are correct at the end of the procedure. Patient and her fianc are requesting circumcision further infant son. They are allowed to begin the bonding experience in the LDR.
[2019-08-01] MEDS ORDERED: OXYTOCIN 20 UNITS/1000 ML NS 1,000 ML IV SCH (11:45)
[2019-08-01] MEDS: SENNOSIDES-DOCUSATE SODIUM 1 EACH TAB PO SCH (19:59)
[2019-08-02 07:07] LABS: Basophils % (A) 0 %; Eosinophils # (A) 0.1 k/uL (0-0.7); Eosinophils % (A) 1 %; HCT 31.8 % (34.0-46.0); HGB 11.1 gm/dL (11.4-16.0); Lymphocytes # (A) 1.9 k/uL (1.0-4.8); Lymphocytes % (A) 14 %; MCH 31.8 pg (25.0-35.0); MCHC 34.8 g/dL (31.0-37.0); MCV 91.3 fL (80.0-100.0); Mean Platelet Volume 7.9; Monocytes # (A) 0.6 k/uL (0-1.0); Monocytes % (A) 4 %; Neutrophils % (A) 80 %; Platelet Count 197 k/uL (150-450); RBC 3.49 m/uL (3.80-5.40); RDW 14.4 % (11.5-15.5); WBC 13.9 k/uL (3.8-10.6)
--- NOTE | 2019-08-02 07:50 | P.DS ---
Providers Date of admission: 08/01/19 06:08 Expected date of discharge: 08/02/19 Attending physician: Radha Jeffries Primary care physician: Stated None Hospital Course: This is a 29-year-old white female 3 para 1011 EDC 08/07/2019 at 39 1/7 weeks gestation. Patient presented from home with strong regular uterine contractions, in spontaneous labor. is remarkable for blood type O+, rubella status immune, group B strep cultures negative. Patient did have multiple episodes of bright red vaginal bleeding in the third trimester. On presentation she denied vaginal bleeding. Fetus is been active for the . Please see dictated history and physical for details. Artificial amniorrhexis initially revealed clear fluid which turned into thin meconium. Epidural was placed per her request. She progressed well through the first stage of labor with reassuring heart tones. She became completely dilated at 111 hours and began the second stage of labor at that time. Perineal body was prepped and draped, she went on to deliver a liveborn male infant with scores of 8 and 9 at one and 5 minutes respectively. There were large dark blood clots noted with the delivery of placenta, therefore the placenta was sent to pathology for further evaluation, with the suspicion of clinical abruption. Infant weighed 7 lbs. 13 oz. or 3535 g. The was a nuchal cord 1 that was reduced. There was a small first-degree perineal laceration repaired. This morning the patient is doing well. Circumcision has been performed on her infant was also doing well. Patient is judged to be in very good condition for discharge home. She will follow-up in the office with me in 6 weeks. We've reminded her no intercourse, tampons or douching. She is contemplating tubal ligation we will likely schedule this at the 6 week visit. She will use [id number] Advil or Aleve, or ibuprofen as needed for pain. She will call with any fevers shakes or chills, foul smelling or copious lochia, with any pain not alleviated by [id number] products, or indeed with any concerns. She will continue taking her vitamin daily. Patient Condition at Discharge: Good Plan - Discharge Summary Discharge Rx Participant: No New Discharge Prescriptions: No Action Pnv No.95/Ferrous Fum/Folic AC [ Multivitamin Tablet] 1 each PO DAILY Discharge Medication List Pnv No.95/Ferrous Fum/Folic AC [ Multivitamin Tablet] 1 each PO DAILY 08/01/19 [History] Follow up Appointment(s)/Referral(s): Radha Jeffries MD [STAFF PHYSICIAN] - 6 Weeks Discharge Disposition: HOME SELF-CARE
[2019-08-02] MEDS: SENNOSIDES-DOCUSATE SODIUM 1 EACH TAB PO SCH (09:21)
[2019-08-02 09:50] VITALS: BP 123/73; PULSE 97; RESP 16; TEMP 98.2
== END 2019-08-02 13:00 | disposition home or self-care (01) | DRG 807 ==
LOC: FBPOP 05:38 → 4FBP 06:08
PROVIDERS: ADMIT Obstetrics & Gynecology Obstetrics; ATTEND Obstetrics & Gynecology
PROC: 10E0XZZ Delivery of Products of Conception, External Approach (ICD-10-PCS; principal; 2019-08-01)
PROC: 0HQ9XZZ Repair Perineum Skin, External Approach (ICD-10-PCS; 2019-08-01)
PROC: 3E033VJ Introduction of Other Hormone into Peripheral Vein, Percutaneous Approach (ICD-10-PCS; 2019-08-01)
DX: O45.93 Premature separation of placenta, unspecified, third trimester (principal); Z37.0 Single live birth; F32.9 Major depressive disorder, single episode, unspecified; F41.9 Anxiety disorder, unspecified; J45.909 Unspecified asthma, uncomplicated; K21.9 Gastro-esophageal reflux disease without esophagitis; O69.81X0 Labor and delivery complicated by cord around neck, without compression, not applicable or unspecified; O70.0 First degree perineal laceration during delivery; O77.0 Labor and delivery complicated by meconium in amniotic fluid; O99.344 Other mental disorders complicating childbirth; O99.52 Diseases of the respiratory system complicating childbirth; O99.62 Diseases of the digestive system complicating childbirth; Z3A.39 39 weeks gestation of pregnancy; Z82.49 Family history of ischemic heart disease and other diseases of the circulatory system
CPT/HCPCS: 59025; 85025; 86850; 86900; 86901; 88307; 88313; 99213

== ENCOUNTER → 2019-09-10 | Outpatient (CLI) | payer OTHER ==
[2019-09-10 11:08] LABS: Basophils % (A) 0 %; Eosinophils # (A) 0.1 k/uL (0-0.7); Eosinophils % (A) 1 %; HCT 41.1 % (34.0-46.0); HGB 13.6 gm/dL (11.4-16.0); Lymphocytes % (A) 29 %; MCH 30.6 pg (25.0-35.0); MCV 92.8 fL (80.0-100.0); Mean Platelet Volume 6.1; Monocytes # (A) 0.4 k/uL (0-1.0); Monocytes % (A) 6 %; Neutrophils # (A) 4.3 k/uL (1.3-7.7); Neutrophils % (A) 63 %; Platelet Count 280 k/uL (150-450); RBC 4.43 m/uL (3.80-5.40); RDW 13.4 % (11.5-15.5)
== END | disposition home or self-care (01) ==
LOC: LABPAT 10:33
PROVIDERS: ATTEND Obstetrics & Gynecology
DX: Z01.812 Encounter for preprocedural laboratory examination (principal); Z64.0 Problems related to unwanted pregnancy
CPT/HCPCS: 36415; 85025

== ENCOUNTER 2019-09-24 07:17 | Day surgery (SDC) | payer OTHER ==
[2019-09-19 15:25] VITALS: BMI 31.2
[~2019-09-24 07:17] MED LIST changes: +DEXAMETHASONE SOD PHOSPHATE 10 MG/ML 1 ML VIAL IV ONE; +LACTATED RINGERS 1,000 ML IV SCH; +LIDOCAINE 1% 20 ML VIAL (10MG/ML) FOR IV START INTRADERMA PRN; +MIDAZOLAM 2 MG/2 ML VIAL IV PRN; +ONDANSETRON 4 MG/2 ML VIAL IVP ONE; +Pre Op ABX Message 1 EACH MISC MISCELLANE ONE; +SCOPOLAMINE 1.5MG/72HR PATCH TRANSDERM ONE; -SODIUM CHLORIDE 0.9% 1,000 ML IV SCH
[2019-09-24] MEDS ORDERED: PROPOFOL 10 MG/ML 20 ML VIAL IV ONE (07:46)
[2019-09-24] MEDS ORDERED: MIDAZOLAM 2 MG/2 ML VIAL ONE (07:46)
[2019-09-24] MEDS ORDERED: KETOROLAC 30 MG/ML 1 ML VIAL ONE (07:46)
[2019-09-24] MEDS ORDERED: KETAMINE 10 MG/ML 20 ML VIAL ONE (07:46)
[2019-09-24] MEDS ORDERED: fentaNYL (PF) 50 MCG/ML 2 ML AMP ONE (07:46)
[2019-09-24] MEDS ORDERED: LIDOCAINE 1% INJ 10MG/ML (20 ML MDV) ONE (07:46)
[2019-09-24] MEDS ORDERED: SUCCINYLCHOLINE CHLORIDE 100 MG/5 ML SYR IV ONE (07:46)
[2019-09-24] MEDS ORDERED: BUPIVACAINE (PF) 0.25% 30 ML VIAL SQ ONE ×2 (08:05→08:24)
--- NOTE | 2019-09-24 08:41 | P.OP ---
Date of Procedure: 09/24/19 Preoperative Diagnosis: Undesired fertility Postoperative Diagnosis: Normal-appearing female pelvis Procedure(s) Performed: Laparoscopic tubal ligation with Filshie clips Anesthesia: SULTANA Surgeon: Radha Jeffries Estimated Blood Loss (ml): 5 IV fluids (ml): 300 Urine output (ml): 75 Pathology: none sent Condition: stable Disposition: PACU Operative Findings: Normal-appearing tubes and ovaries, no evidence of pelvic endometriosis or adhesions, no uterine anomalies. Description of Procedure: Patient is brought to the operating suite where a general anesthetic is administered without difficulty. She is placed in the dorsal lithotomy position. The appropriate timeout is performed to assure proper patient and procedural identification. The cervix, vagina, perineal body and abdomen are all prepped and draped in the usual sterile fashion. Bladder is drained for approximately 75 mL of clear yellow urine. Examination under anesthesia reveals a small anteverted uterus, negative adnexa bilaterally. Speculum is placed into the vagina and the anterior lip of the cervix is grasped with an Allis clamp. A large acorn cannula is placed onto the cervix and attached to the Allis clamp, and the speculum is removed. Attention is then drawn to the abdominal wall. A small infraumbilical incision is made, the varies needle is placed and the placement is checked with hanging drop technique. The abdomen is insufflated under low filling pressures of approximately 6 mmHg for a total of 3.5 L of CO2 gas. Pneumoperitoneum is well established.. Varies needle is removed. The trocar is then placed in the placement is noted to be atraumatic upon insertion of the camera. Patient is now placed in 15 Trendelenburg position and a second incision is made suprapubically, the second trocar placed under direct visualization. The right fallopian tube is visualized in its entirety. A Filshie clip is placed in the isthmic portion of the tube with care to traverse the entire diameter of the tube into the mesal salpinx. The same procedure is carried out contralaterally, again fimbriated and visualized and clip placed in the isthmic portion. Bilateral tubes and ovaries, cul-de-sac anteriorly and posteriorly, pelvic sidewalls, uterine surface all negative to inspection. Gallbladder and liver negative. After inspection of the abdominal cavity and pelvis, the CO2 gas was allowed to diffuse. The trochars are removed under direct visualization and the incision sites are clean and dry. 4-0 undyed Monocryl is used in a subcuticular manner to close the skin. Steri- Strips and Mastisol are applied to the wound. Wounds are injected with quarter percent Marcaine without epinephrine to aid in postoperative analgesia and hemostasis. Instrumentation is removed from the vagina, the cervix is clean and dry. All sponge needle and enhancement counts are correct at the end of the procedure. Patient is brought back to the recovery room in very good condition with stable vital signs including a pulse of 60, 99% O2 saturation, blood pressure 114/60. Toradol is given prior to leaving the operative suite. Patient will follow-up with me in the office in 2 weeks.
[2019-09-24 08:58] VITALS: RESP 16; TEMP 96.8
[2019-09-24] MEDS: HYDROmorphone 0.5 MG/0.5 ML SYRINGE IVP PRN ×2 (09:30→09:35)
[2019-09-24] MEDS ORDERED: LACTATED RINGERS 1,000 ML IV ONE (09:46)
[2019-09-24] MEDS ORDERED: IBUPROFEN 200 MG TAB PO ONE (09:58)
[2019-09-24 10:22] VITALS: BP 135/89; PULSE 74
== END 2019-09-24 10:44 | disposition home or self-care (01) ==
LOC: OR 07:17
PROVIDERS: ATTEND Obstetrics & Gynecology
DX: Z30.2 Encounter for sterilization (principal); J45.909 Unspecified asthma, uncomplicated; I48.91 Unspecified atrial fibrillation; I47.1 Supraventricular tachycardia; Z88.7 Allergy status to serum and vaccine; K21.9 Gastro-esophageal reflux disease without esophagitis; Z82.49 Family history of ischemic heart disease and other diseases of the circulatory system; Z85.850 Personal history of malignant neoplasm of thyroid
CPT/HCPCS: 81025; 58671; J2250; J1100; J2405; J2001; J3010; J1885; J0330; J2704; J1170

== ENCOUNTER → 2020-04-27 | Outpatient (CLI) | payer OTHER | END | disposition home or self-care (01) | LOC: LABWHC1 12:04 | PROVIDERS: ATTEND Internal Medicine Clinical Cardiac Electrophysiology | DX: Z11.59 Encounter for screening for other viral diseases (principal) ==

== ENCOUNTER 2020-04-28 13:04 | Day surgery (SDC) | payer OTHER ==
[2020-04-24 15:55] VITALS: BMI 30.2
[~2020-04-28 13:04] MED LIST changes: -DEXAMETHASONE SOD PHOSPHATE 10 MG/ML 1 ML VIAL IV ONE; -LACTATED RINGERS 1,000 ML IV SCH; -LIDOCAINE 1% 20 ML VIAL (10MG/ML) FOR IV START INTRADERMA PRN; -MIDAZOLAM 2 MG/2 ML VIAL IV PRN; -ONDANSETRON 4 MG/2 ML VIAL IVP ONE; -Pre Op ABX Message 1 EACH MISC MISCELLANE ONE; -SCOPOLAMINE 1.5MG/72HR PATCH TRANSDERM ONE; +SODIUM CHLORIDE 0.9% 1,000 ML IV SCH
[2020-04-28 13:34] VITALS: RESP 16; TEMP 98.3
[2020-04-28] MEDS ORDERED: SODIUM CHLORIDE 0.9% 500 ML 500 ML IV ONE (13:34)
[2020-04-28] MEDS ORDERED: fentaNYL (PF) 50 MCG/ML 2 ML AMP ONE (15:06)
[2020-04-28] MEDS: MIDAZOLAM 2 MG/2 ML VIAL IV ONE ×2 (15:31→15:36)
[2020-04-28] MEDS ORDERED: LIDOCAINE 1% INJ 10MG/ML (20 ML MDV) SQ ONE (15:33)
--- NOTE | 2020-04-28 15:49 | P.DS ---
Providers Attending physician: Ap Flores Primary care physician: Stated None Hospital Course: Loop explant under sedation and local anesthesia. Patient was brought to the EP lab in a fasting state. Written informed consent was obtained prior to the procedure. The subcutaneous device was successfully explanted under local anesthesia. Preoperative antibiotics were administered. The wound was closed in layers and dressed per protocol. Result: Successful loop monitor explantation. Patient underwent EP procedure under conscious sedation/moderate sedation, monitoring of the level of consciousness and physiologic parameters including but not limited to vital signs and oxygenation. Patient tolerated the procedure well without any acute complications. Start time: 3:31 PM Stop time: 3:37 PM Patient Condition at Discharge: Stable Plan - Discharge Summary Discharge Rx Participant: No New Discharge Prescriptions: No Action No Known Home Medications Discharge Medication List No Known Home Medications 03/17/20 [History] Patient Instructions/Handouts: Surgical Site Infections (DC)
[2020-04-28 16:43] VITALS: BP 122/79; PULSE 84
== END 2020-04-28 16:43 | disposition home or self-care (01) ==
LOC: CATHEP 13:04
PROVIDERS: ATTEND Internal Medicine Clinical Cardiac Electrophysiology
DX: Z45.09 Encounter for adjustment and management of other cardiac device (principal); I47.1 Supraventricular tachycardia; Z33.1 Pregnant state, incidental; Z82.49 Family history of ischemic heart disease and other diseases of the circulatory system; Z88.7 Allergy status to serum and vaccine
CPT/HCPCS: 33286; 81025; J2250; J0690; J2001

== ENCOUNTER 2023-06-26 18:27 | Emergency (ER) | payer OTHER ==
[2023-06-26 18:36] VITALS: TEMP 99.6
[2023-06-26] MEDS ORDERED: KETOROLAC 15 MG/ML 1 ML VIAL IVP STA ×2 (19:02→20:34)
[2023-06-26] MEDS ORDERED: ONDANSETRON 4 MG/2 ML VIAL IVP STA (19:02)
[2023-06-26] MEDS ORDERED: MORPHINE SULFATE 2 MG/ML SYRINGE IVP STA ×2 (19:02→20:34)
[2023-06-26] MEDS ORDERED: SODIUM CHLORIDE 0.9% 1,000 ML IV STA (19:02)
--- NOTE | 2023-06-26 19:30 | ED ---
Abdominal Pain HPI - General Chief Complaint: Abdominal Pain Stated Complaint: transfer-pelvic pain Time Seen by Provider: 06/26/23 18:57 Source: patient, RN notes reviewed Mode of arrival: ambulatory Limitations: no limitations - History of Present Illness Initial Comments: This is a 33-year-old female who presents to the emergency department for pelvic pain. Patient was transferred from [facility] after a uterine fibroid was discovered on her imaging. States that she's had increasing pelvic pain for the last 5 days with mild associated nausea. This prompted her to go to the emergency department. She did require several doses of morphine to control her pain. They intended to discharge her on oral Mathias, however the patient refused and requested transfer to a facility where [facility] was available. She has previously seen Dr. Jeffries in the past. She was subsequently accepted as a transfer to our facility. Denies any fevers, chills, sore throat, cough, dyspnea, chest pain, palpitations, vomiting, diarrhea, back pain, or headaches. MD Complaint: abdominal pain Onset/Timin -: days(s) - Related Data Previous Rx's Medication Instructions Recorded HYDROcodone/APAP 7.5-325MG [Mathias 1 tab PO Q6HR PRN 3 Days #12 tab 06/26/23 7.5-325] Ketorolac [Toradol] 10 mg PO Q6HR PRN #15 tab 06/26/23 Ondansetron Odt [Zofran Odt] 4 mg PO Q8HR PRN #20 tab 06/26/23 Allergies Allergy/AdvReac Type Severity Reaction Status Date / Time Influenza Virus Vaccines Allergy Rash/Hives Verified 06/26/23 19:22 Review of Systems ROS Statement: Those systems with pertinent positive or pertinent negative responses have been documented in the HPI. ROS Other: All systems not noted in ROS Statement are negative. Past Medical History Past Medical History: Asthma, GERD/Reflux, Supraventricular Tachycardia (SVT) Additional Past Medical History / Comment(s): Migraines, asthma as child, SVT History of Any Multi-Drug Resistant Organisms: None Reported Past Surgical History: Tubal Ligation Additional Past Surgical History / Comment(s): Pilonidal cyst removal. LOOP RECORDER insertion, EP study Past Anesthesia/Blood Transfusion Reactions: No Reported Reaction Past Psychological History: Depression Past Alcohol Use History: Rare Past Drug Use History: None Reported - Past Family History Mother Family Medical History: Hypertension Father Family Medical History: Hyperlipidemia General Exam Limitations: no limitations General appearance: alert, in no apparent distress Head exam: Present: atraumatic, normocephalic, normal inspection Respiratory exam: Present: normal lung sounds bilaterally. Absent: respiratory distress, wheezes, rales, rhonchi, stridor Cardiovascular Exam: Present: regular rate, normal rhythm, normal heart sounds. Absent: systolic murmur, diastolic murmur, rubs, gallop, clicks GI/Abdominal exam: Present: soft, tenderness (suprapubic), normal bowel sounds. Absent: distended, guarding, rebound, rigid Neurological exam: Present: alert, oriented X3, CN II-XII intact Psychiatric exam: Present: normal affect, normal mood Skin exam: Present: warm, dry, intact, normal color. Absent: rash Course Vital Signs 06/26/23 06/26/23 06/26/23 18:34 18:55 20:00 Temperature 99.6 F Pulse Rate 141 H 117 H 108 H Respiratory 18 20 18 Rate Blood Pressure 137/95 137/106 115/71 O2 Sat by Pulse 98 96 99 Oximetry 06/26/23 20:59 Temperature Pulse Rate 104 H Respiratory 18 Rate Blood Pressure 120/81 O2 Sat by Pulse 98 Oximetry Medical Decision Making - Medical Decision Making This is a 33-year-old female who presents to the emergency department as a transfer for a uterine fibroid. Was pt. sent in by a medical professional or institution? @ -[facility] Did you speak to anyone other than the patient for history? @ -No Did you review nursing and triage notes? @ -Yes, and I agree, it is accurate with regards to the patient's symptoms. Were old charts reviewed? @ -Outside documentation including blood work, computed tomography scan of the abdomen and pelvis, and pelvic ultrasound obtained at [facility] earlier today. This demonstrated a 9.5 x 8.7 x 9.6 cm uterine fibroid. Lab work and imaging were otherwise unremarkable. Differential Diagnosis? @ -Not obtained EKG interpreted by me (3pts min.)? @ -Not obtained X-rays interpreted by me (1pt min.)? @ -Not obtained CT interpreted by me (1pt min.)? @ -Not obtained U/S interpreted by me (1pt. min.)? @ -Not obtained What testing was considered but not performed? (CT, X-rays, U/S, labs)? Why? @ -None What meds were considered but not given? Why? @ -None Did you discuss the management of the patient with other professionals? @ -Yes, Dr. Lopez, [facility], who advised that because she is not bleeding or experiencing any other systemic symptoms aside from the mild nausea, there is no indication for immediate surgical intervention. She advised that she can be discharged home with pain medication and follow-up with her on an outpatient basis. Did you reconcile home meds? @ -No Was smoking cessation discussed for >3mins.? @ -No Was critical care preformed (if so, how long)? @ -No Were there social determinants of health that impacted care today? How? (Homelessness, low income, unemployed, alcoholism, drug addiction, transportation, low edu. Level, literacy, decrease access to med. care, group home, rehab)? @ -No Was there de-escalation of care discussed even if they declined? (Discuss DNR or withdrawal of care, Hospice)? @ -No What co-morbidities impacted this encounter? (DM, HTN, Smoking, COPD, CAD, Cancer, CVA, Hep., AIDS, mental health diagnosis, sleep apnea, morbid obesity)? @ -None Was patient admitted / discharged? @ -Discharged. I reviewed all outside imaging and documentation sent from [facility]. Patient was found to have a uterine fibroid measuring 9.5 x 8.7 x 9.6 cm. The imaging provided was scanned into our system as well. The lab work was found to be unremarkable. I did obtain a urine sample while the patient was here, and this was negative for signs of infection. Discussed with the patient that the fibroid has likely been present for a long period of time given the size. I spoke with Dr. Lopez, [facility]. She advised that because she is not hemorrhaging or having any other complications from this, there is no need for any urgent surgical intervention. She advised that she can follow up with her on an outpatient basis for discussion of further management. Patient was agreeable to this. Pain was controlled in the emergency department. She was given prescriptions for Mathias, Toradol, and Zofran. Patient is instructed to take the Toradol with Tylenol if needed and avoid any other [id number]-[id number] anti-inflammatories such as ibuprofen with the Toradol. Advised that the Mathias is sedating and she should avoid driving or operating machinery when taking this. She will otherwise contact [facility] first thing in the morning for a follow-up appointment. Undiagnosed new problem with uncertain prognosis? @ -None Drug Therapy requiring intensive monitoring for toxicity (Heparin, Nitro, Insulin, Cardizem)? @ -None Were any procedures done? @ -None Diagnosis/symptom? @ -Uterine fibroid Acute, or Chronic, or Acute on Chronic? @ -Acute Uncomplicated (without systemic symptoms) or Complicated (systemic symptoms)? @ -Uncomplicated Side effects of treatment? @ -None Exacerbation, Progression, or Severe Exacerbation] @ -Not applicable Poses a threat to life or bodily function? @ -No Return precautions reviewed in depth, the patient is instructed to return to the emergency department with any new, worsening, or concerning symptoms. Patient verbalized understanding. This case was discussed in detail with the attending ED physician, Dr. Rodriguez. Presentation, findings, and treatment plan discussed in detail as well. - Lab Data Lab Results 06/26/23 Range/Units 19:49 Urine Color Light Yellow Urine Appearance Clear (Clear) Urine pH 6.5 (5.0-8.0) Ur Specific [place] 1.018 (1.001-1.035) Urine Protein Negative (Negative) Urine Glucose (UA) Negative (Negative) Urine Ketones 1+ H (Negative) Urine Blood Negative (Negative) Urine Nitrite Negative (Negative) Urine Bilirubin Negative (Negative) Urine Urobilinogen <2.0 (<2.0) mg/dL Ur Leukocyte Esterase Negative (Negative) - Radiology Data Radiology results: report reviewed, image reviewed Disposition Clinical Impression: Uterine fibroid Disposition: HOME SELF-CARE Instructions (If sedation given, give patient instructions): Pelvic Pain (ED) Additional Instructions: Return to the emergency department with any new, worsening, or concerning symptoms. Take the Toradol with Tylenol as needed for pain relief. If you choose to take the Toradol, do not take any other [id number]-[id number] anti- inflammatories such as ibuprofen, take one or the other. Take the Mathias sparingly your pain is most severe and be aware that it may make you drowsy. The Zofran can be taken up to every 8 hours as needed for nausea and vomiting. Contact [facility] first thing tomorrow morning for a follow-up appointment. Follow up with your primary care provider in 1-2 days. Prescriptions: HYDROcodone/APAP 7.5-325MG [Mathias 7.5-325] 1 tab PO Q6HR PRN 3 Days #12 tab PRN Reason: Pain Ketorolac [Toradol] 10 mg PO Q6HR PRN #15 tab PRN Reason: Pain Ondansetron Odt [Zofran Odt] 4 mg PO Q8HR PRN #20 tab PRN Reason: Nausea And Vomiting Is patient prescribed a controlled substance at d/c from ED?: Yes When asked, does pt state using other controlled substances?: No If prescribed controlled substance>3 days was MAPS reviewed?: Prescribed <3 Days Referrals: Gema Musa MD [Primary Care Provider] - 1-2 days Indu Lopez MD [STAFF PHYSICIAN] - 1-2 days
[2023-06-26 20:10] VITALS: RESP 18
[2023-06-26 20:27] LABS: Appearance,Urine Clear (Clear); Bilirubin,Urine Negative (Negative); Blood,Urine Negative (Negative); Color,Urine Light Yellow; Glucose,Urine (UA) Negative (Negative); Ketones,Urine 1+ (Negative); Leukocyte Esterase,Urine Negative (Negative); Nitrite,Urine Negative (Negative); PH, Urine 6.5 (5.0-8.0); Protein,Urine Negative (Negative); Specific Gravity,Urine 1.018 (1.001-1.035); Urobilinogen,Urine <2.0 mg/dL (<2.0)
[2023-06-26] MEDS ORDERED: ONDANSETRON 4 MG ODT STARTER PACK 2 TAB BTL PO STA (20:35)
[2023-06-26] MEDS ORDERED: HYDROcodone/APAP 10-325MG 1 EACH TAB PO ONE (20:35)
[2023-06-26] MEDS ORDERED: ACET/COD 300 MG/30 MG STARTER PACK 6 TAB BTL PO STA (20:35)
[2023-06-26] MEDS ORDERED: IBUPROFEN 600 MG STARTER PACK 4 TAB BTL PO STA (20:35)
[2023-06-26 21:07] VITALS: BP 120/81; PULSE 104
== END 2023-06-26 21:08 | disposition home or self-care (01) ==
LOC: EC 18:27
DX: D25.9 Leiomyoma of uterus, unspecified (principal); J45.909 Unspecified asthma, uncomplicated; Z86.59 Personal history of other mental and behavioral disorders; Z88.7 Allergy status to serum and vaccine
CPT/HCPCS: 93005; 81003; 99284; 96374; 96375 ×2; 96376 ×2; 96361; J2405; J2270; J1885; S0119

== ENCOUNTER → 2025-05-27 | Outpatient (CLI) | payer BC ==
--- NOTE | 2025-05-27 09:35 | US ---
EXAMINATION TYPE: US pelvic complete DATE OF EXAM: 05/27/2025 COMPARISON: 12/09/2018 CLINICAL INDICATION: Female, 35 years old with history of R11.0 NAUSEA R10.2 PELVIC AND PERINEAL PAIN ; Lower pelvic pain for about 6 months. Previous hysterectomy. TECHNIQUE: Transabdominal (TA). Transabdominal grayscale sonographic images of the pelvis were acquired. Doppler imaging: Not performed. FINDINGS: Date of LMP: N/A EXAM MEASUREMENTS: Uterus: Surgically absent Endometrial Stripe: Surgically absent Right Ovary: 3.5 x 2.6 x 3.2 cm Left Ovary: Surgically absent 1. Uterus: Surgically absent 2. Endometrium: Surgically absent 3. Right Ovary: wnl 4. Left Ovary: Surgically absent 5. Bilateral Adnexa: wnl 6. Posterior cul-de-sac: wnl No organizing fluid collection or mass. IMPRESSION: 1. No evidence for acute process. 2. Right ovary is visualized and within normal limits. [facility], , 05/27/2025 9:33 AM
--- NOTE | 2025-05-27 09:43 | US ---
EXAMINATION TYPE: US abdomen limited DATE OF EXAM: 05/27/2025 COMPARISON: US 06/13/2016 CLINICAL INDICATION: Female, 35 years old with history of R11.0 NAUSEA R10.2 PELVIC AND PERINEAL PAIN ; Nausea x6 months TECHNIQUE: Grayscale and color Doppler imaging of the right upper quadrant. FINDINGS: EXAM MEASUREMENTS: Liver Length: 14.8 cm Gallbladder Wall: 0.1 cm CBD: 0.6 cm, color Doppler imaging was utilized to isolate the common bile duct for measurement. Right Kidney: 9.6 x 4.0 x 4.9 cm SUPERVISING NURSE NOTES: Exam limited by overlying bowel gas Pancreas: portions visualized wnl, tail obscured by overlying bowel gas Liver: wnl Gallbladder: wnl Evidence for sonographic Ruiz's sign: No CBD: wnl Right Kidney: No hydronephrosis or masses seen IMPRESSION: No evidence for acute process. [facility], , 05/27/2025 9:41 AM
== END | disposition home or self-care (01) ==
LOC: RADUSWWP 08:46
PROVIDERS: ATTEND Internal Medicine
DX: R11.0 Nausea (principal); R10.2 Pelvic and perineal pain
CPT/HCPCS: 76705; 76856